=== PATIENT | female | born 1965 | race Caucasian/White ===

== ENCOUNTER 2017-05-22 19:49 | Observation (INO) | payer BC ==
[~2017-05-22] VITALS: Ht 162.6 cm; Wt 90.7 kg
[2017-05-22 21:10] LABS: ADENOVIRUS F 40/41 Not Detected (Negative); ASTROVIRUS Not Detected (Negative); CAMPYLOBACTER Not Detected (Negative); CLOSTRIDIUM DIFFICILE TOX A/B Not Detected (Negative); CRYPTOSPORIDIUM Not Detected (Negative); E.COLI 0157 Not Detected (Negative); ENTAMOEBA HISTOLYTICA Not Detected (Negative); ENTEROAGGREGATIVE E.COLI (EAEC Not Detected (Negative); ENTEROPATHOGENIC E.COLI (EPEC) Not Detected (Negative); ENTEROTOXIGENIC E.COLI (ETEC) Not Detected (Negative); GIARDIA LAMBLIA Not Detected (Negative); PLESIOMONAS SHIGELLOIDES Not Detected (Negative); ROTOVIRUS A Not Detected (Negative); SALMONELLA Not Detected (Negative); SAPOVIRUS Not Detected (Negative); SHIG/ENTEROINVAS.ECOLI (EIEC) Not Detected (Negative); SHIGA-LIK TOX.PRO.E.COLI (STEC Not Detected (Negative); VIBRIO Not Detected (Negative); VIBRIO CHOLERAE Not Detected (Negative); YERSINIA ENTEROCOLITICA Not Detected (Negative)
[2017-05-22 21:13] LABS: RED BLOOD COUNT 5.56 M/UL (4.00-5.10); WHITE BLOOD COUNT 9.6 K/UL (4.5-11.0)
[2017-05-22 21:29] LABS: BUN/CREATININE RATIO 24 (0-10)
[2017-05-23] MEDS ORDERED: NEXIUM20 MG PO (06:23)
[2017-05-23] MEDS ORDERED: SYNTHROID88 MCG PO (06:23)
[2017-05-23] MEDS ORDERED: LOPRESSOR 25 MG25 MG PO (06:25)
[2017-05-23] MEDS ORDERED: VITAMIN D5000 UNIT PO (06:25)
[2017-05-23] MEDS ORDERED: LIPITOR TAB 1010 MG PO (06:26)
[2017-05-23] MEDS ORDERED: WELLBUTRIN SR150 MG PO (06:26)
[2017-05-23 11:35] LABS: NOROVIRUS GI/GII DETECTED (Negative)
[2017-05-23 16:00] LABS: BUN/CREATININE RATIO 20 (0-10)
[2017-05-23] MEDS ORDERED: ZOFRAN ODT8 MG PO (17:22)
== END 2017-05-23 19:00 | disposition home or self-care (01) ==
LOC: ER1 19:49 → ZEROF 05-23 00:20 → M/S 05-23 00:20
PROVIDERS: Physician Assistant; Physician Assistant Medical; ADMIT Hospitalist
DX: A08.4 Viral intestinal infection, unspecified (principal); J40 Bronchitis, not specified as acute or chronic; E86.9 Volume depletion, unspecified; I10 Essential (primary) hypertension; E03.9 Hypothyroidism, unspecified; K21.9 Gastro-esophageal reflux disease without esophagitis; E78.5 Hyperlipidemia, unspecified; Z88.0 Allergy status to penicillin; Z79.899 Other long term (current) drug therapy
CPT/HCPCS: 36415; 71010; 80048; 80053; 81001; 82150; 82550; 82553; 83605; 83690; 84436; 84443; 84480; 84484; 85025; 86140; 87507; 89055; 96361; 96374; 96375; 96376; 99285; C9113; G0378; J0780; J1885; J2270; J2405; J7030; J7050; Q9962